=== PATIENT | male | born 1995 | race African-American/Black ===

== ENCOUNTER 2020-10-07 15:52 | Emergency (ER) | payer OTHER ==
[~2020-10-07] VITALS: Ht 180.3 cm; Wt 81.6 kg
[2020-10-07 15:56] VITALS: BP 128/74; Ht 180.3 cm; Wt 81.6 kg
== END 2020-10-07 16:39 | disposition other institution (70) ==
LOC: ED 15:52
DX: Z02.89 Encounter for other administrative examinations (principal)